=== PATIENT | female | born 1960 | race Hispanic/Latino ===

== ENCOUNTER 2016-12-20 04:53 | Emergency (ER) | payer MEDICAID ==
[2016-12-20 04:57] VITALS: BMI 28.3
--- NOTE | 2016-12-20 05:19 | ED PDOC ---
Arrival/HPI - General Chief Complaint: Chest Pain Time Seen by Provider: 12/20/16 04:56 Historian: Patient - History of Present Illness Narrative History of Present Illness (Text): 12/20/16 05:15 Adrianne Manjarrez is a 56 year old female, with a history of hypercholesterolemia, presents to the emergency department complaining of 1 week duration of intermittent left sided chest pain. States that pain radiates to the left arm. States that pain is worsened with movement of left arm.Notes of decreased ROM left shoulder secondary to pain. Denies fever, chills, headache , dizziness, shortness of breath, nausea, vomiting, diarrhea, abdominal pain, urinary symptoms, or any other complaints at this time. Time/Duration: 1 week Symptom Onset: Gradual Symptom Course: Intermittent Severity Level: Mild Activities at Onset: Light Past Medical History - Provider Review Nursing Documentation Reviewed: Yes - Infectious Disease Hx of Infectious Diseases: None - Psychiatric Hx Substance Use: No - Surgical History Hx Splenectomy: Yes - Anesthesia Hx Anesthesia: Yes Hx Anesthesia Reactions: No Hx Malignant Hyperthermia: No Family/Social History - Physician Review Nursing Documentation Reviewed: Yes Family/Social History: No Known Family HX Smoking Status: Heavy Smoker > 10 Cigarettes Daily Hx Alcohol Use: Yes Frequency of alcohol use: Socially Hx Substance Use: No Allergies/Home Meds Allergies/Adverse Reactions: Allergies aspirin Allergy (Verified 12/20/16 04:57) ANAPHYLAXIS GI BLEED Review of Systems - Physician Review All systems were reviewed & negative as marked: Yes - Review of Systems Constitutional: Normal. absent: Fatigue, Fevers Respiratory: absent: SOB, Cough, Sputum Cardiovascular: Chest Pain. absent: Palpitations Gastrointestinal: Normal. absent: Abdominal Pain, Diarrhea, Nausea, Vomiting Genitourinary Female: Normal. absent: Dysuria, Frequency Musculoskeletal: Other (left shoulder pain ). absent: Back Pain, Neck Pain Neurological: Normal. absent: Headache, Dizziness Physical Exam Vital Signs Reviewed: Yes Vital Signs Temp Pulse Resp BP Pulse Ox 12/20/16 07:20 98 F 74 16 142/89 98 12/20/16 07:02 16 139/91 H 12/20/16 04:53 97.8 F 72 18 132/85 95 Temperature: Afebrile Blood Pressure: Normal Pulse: Regular Respiratory Rate: Normal Appearance: Positive for: Well-Appearing, Non-Toxic, Comfortable Pain Distress: None Mental Status: Positive for: Alert and Oriented X 3 - Systems Exam Head: Present: Atraumatic, Normocephalic Pupils: Present: PERRL Conjunctiva: Present: Normal Mouth: Present: Moist Mucous Membranes Respiratory/Chest: Present: Clear to Auscultation, Good Air Exchange. No: Respiratory Distress, Accessory Muscle Use Cardiovascular: Present: Regular Rate and Rhythm, Normal S1, S2. No: Murmurs Abdomen: Present: Normal Bowel Sounds. No: Tenderness, Distention, Peritoneal Signs Upper Extremity: Present: NORMAL PULSES, Neurovascularly Intact, Other ( decreased ROM secondary to pain ). No: Cyanosis, Edema, Swelling, Erythema, Deformity Lower Extremity: Present: Normal Inspection. No: Edema Neurological: Present: GCS=15, CN II-XII Intact, Speech Normal Skin: Present: Warm, Dry, Normal Color. No: Rashes Psychiatric: Present: Alert, Oriented x 3, Normal Insight, Normal Concentration Medical Decision Making ED Course and Treatment: 12/20/16 05:20 Impression: A 56 year old female who presents to the emergency department complaining of left sided chest pain radiating to left arm for past week. Plan: -- EKG -- Labs, cardiac enzymes -- Chest X-ray -- Shoulder X-ray -- Urinalysis -- Reassess and disposition Progress Notes: ekg rsr rate 82 normal pt pain ms inn anture pain fopr 2 weeks with neg trop will dc follow up with pmd 12/20/16 07:10 12/21/16 22:42 - Lab Interpretations Lab Results: 12/20/16 05:20 12/20/16 05:20 Lab Results 12/20/16 06:00: Urine Color Yellow, Urine Appearance Sl cloudy, Urine pH 6.0, Ur Specific [place] >= 1.030, Urine Protein Trace H, Urine Glucose (UA) Negative , Urine Ketones Negative, Urine Blood Trace-intact H, Urine Nitrate Negative, Urine Bilirubin Negative, Urine Urobilinogen 0.2, Ur Leukocyte Esterase Negative , Urine RBC 0 - 2, Urine WBC 0 - 2, Ur Epithelial Cells 3 - 4 12/20/16 05:20: Sodium 137, Potassium 3.6, Chloride 103, Carbon Dioxide 26, Anion Gap 12, BUN 12, Creatinine 0.6, Est GFR ( Amer) > 60, Est GFR (Non- Af Amer) > 60, Random Glucose 111 H, Calcium 9.3, Total Bilirubin 0.7, AST 30, ALT 34, Alkaline Phosphatase 66, Lactate Dehydrogenase 360, Total Creatine Kinase 98, Troponin I < 0.01, Total Protein 7.2, Albumin 3.7, Globulin 3.5, Albumin/Globulin Ratio 1.0 L, Amylase 51, Lipase 40 12/20/16 05:20: WBC 15.0 H, RBC 4.15, Hgb 13.0, Hct 38.3, MCV 92.3, MCH 31.3, MCHC 33.9, RDW 13.6, Plt Count 526 H, MPV 9.9, Gran % 69.6 H, Lymph % (Auto) 20.3 L, Wallace % (Auto) 8.2 H, Eos % (Auto) 1.7, Baso % (Auto) 0.2, Gran # 10.42 H , Lymph # 3.1, Wallace # 1.2 H, Eos # 0.3, Baso # 0.03 - RAD Interpretation Radiology Orders: 12/20/16 05:10 CHEST TWO VIEWS (PA/LAT) [RAD] Stat SHOULDER LEFT [RAD] Stat - Medication Orders Current Medication Orders: Discontinued Medications Tramadol/Acetaminophen (Ultracet 37.5/325 Mg) 1 tab PO ONCE STA Stop: 12/20/16 07:08 ROWENA Risk Score for UA/NSTEMI - ROWENA Risk Score Age > 64: NO 3 or more CAD Risk Factors: NO Known CAD (Stenosis greater than 50%): NO Aspirin use in past 7 days: NO Severe Angina: NO EKG ST changes greater than 0.5mm: NO Positive Cardiac Marker: NO ROWENA Score: 0 % risk at 14 days of: all cause mortality, new or recurrent MS, or severe recurrent ischemia requiring urgen revascularization: 5% - Scribe Statement The provider has reviewed the documentation as recorded by the Emeterio Maldonado Provider Attestation: All medical record entries made by the Emeterio were at my direction and personally dictated by me. I have reviewed the chart and agree that the record accurately reflects my personal performance of the history, physical exam, medical decision making, and the department course for this patient. I have also personally directed, reviewed, and agree with the discharge instructions and disposition. Disposition/Present on Arrival - Present on Arrival Any Indicators Present on Arrival: No History of DVT/PE: No History of Uncontrolled Diabetes: No Urinary Catheter: No History of Decub. Ulcer: No History Surgical Site Infection Following: None - Disposition Have Diagnosis and Disposition been Completed?: Yes Diagnosis: Shoulder bursitis, Chest pain Disposition: HOME/ ROUTINE Disposition Time: 07:15 Condition: GOOD Discharge Instructions (ExitCare): Chest Pain (ED), Shoulder Bursitis (ED) Prescriptions: Tramadol HCl [Ultram] 50 mg PO QID #12 tab Referrals: Bi Clarke MD [Primary Care Provider] - Follow up with primary
[2016-12-20 05:33] LABS: ADD MANUAL DIFF? NO
[2016-12-20 05:41] LABS: BASO # 0.03 K/mm3 (0.0-2.0); BASO % 0.2 % (0.0-3.0); EOS # 0.3 (0.0-0.7); EOS % 1.7 % (1.5-5.0); GRAN # 10.42 (1.4-6.5); GRAN % 69.6 % (50.0-68.0); HEMATOCRIT 38.3 % (36.0-48.0); LYMPH # 3.1 (1.2-3.4); LYMPH % 20.3 % (22.0-35.0); MEAN CELL VOLUME 92.3 fL (80.0-105.0); MEAN CORPUSCULAR HEMOGLOBIN 31.3 pg (25.0-35.0); MEAN CORPUSCULAR HGB CONC 33.9 g/dl (31.0-37.0); MEAN PLATELET VOLUME 9.9 fl (7.0-11.0); MONO # 1.2 (0.1-0.6); MONO % 8.2 % (1.0-6.0); PLATELET COUNT 526 10^3/uL (120.0-450.0); RED CELL DISTRIBUTION WIDTH 13.6 % (11.5-14.5)
[2016-12-20 05:58] LABS: ALKALINE PHOSPHATASE 66 U/L (38-133); ALT/SGPT 34 U/L (7-56); AMYLASE 51 U/L (35-125); AST/SGOT 30 U/L (15-39); BILIRUBIN,TOTAL 0.7 mg/dL (0.2-1.3); BLOOD UREA NITROGEN 12 mg/dL (7-21); CALCIUM 9.3 mg/dL (8.4-10.5); CARBON DIOXIDE 26 mmol/L (21-33); CHLORIDE 103 mmol/L (95-110); GFR AFRICAN-AMERICAN > 60; GLUCOSE,RANDOM 111 mg/dL (70-110); LIPASE 40 U/L (23-300); POTASSIUM 3.6 mmol/L (3.6-5.0); SODIUM 137 mmol/L (132-148); TOTAL PROTEIN 7.2 g/dL (5.8-8.3)
[2016-12-20 06:03] LABS: TROPONIN I < 0.01 ng/mL
[2016-12-20 06:19] LABS: URINE BILIRUBIN NEGATIVE (NEGATIVE); URINE BLOOD TRACE-INTACT (NEGATIVE); URINE GLUCOSE (UA) NEGATIVE (NEGATIVE); URINE KETONE NEGATIVE (NEGATIVE); URINE LEUKOCYTE ESTERASE NEGATIVE Leu/uL (NEGATIVE); URINE PROTEIN TRACE mg/dL (<30 mg/dL); URINE UROBILINOGEN 0.2 E.U./dL (<1 E.U./dL)
[2016-12-20 06:39] LABS: URINE APPEARANCE SL CLOUDY (CLEAR); URINE COLOR YELLOW (YELLOW)
[2016-12-20 06:43] LABS: URINE RBC 0 - 2 /hpf (0-2); URINE WBC 0 - 2 /hpf (0-6)
[2016-12-20 07:05] VITALS: RESP 16
[2016-12-20] MEDS ORDERED: TraMADol/Apap 37.5/325 mg Tab PO STA (07:07)
[2016-12-20 07:20] VITALS: BP 142/89; PULSE 74; TEMP 98; O2SAT 98
--- NOTE | 2016-12-20 09:01 | RAD ---
HISTORY: cp COMPARISON: No prior. TECHNIQUE: Chest PA and lateral FINDINGS: LUNGS: No active pulmonary disease. PLEURA: Possible small left pleural effusion versus chronic pleural thickening. No right pleural effusion. No pneumothorax. CARDIOVASCULAR: Normal. OSSEOUS STRUCTURES: No significant abnormalities. VISUALIZED UPPER ABDOMEN: Normal. OTHER FINDINGS: None. IMPRESSION: Small left pleural effusion versus chronic pleural thickening. No infiltrate.
--- NOTE | 2016-12-20 09:05 | RAD ---
PROCEDURE: Radiographs of the Left Shoulder HISTORY: pain COMPARISON: No prior. FINDINGS: BONES: Normal. No fracture. JOINTS: Normal. Glenohumeral and acromioclavicular joints preserved. No osteoarthritis. SOFT TISSUES: Small globular calcification adjacent to lesser tuberosity consistent with calcific tendinitis. OTHER FINDINGS: None. IMPRESSION: Calcific tendinitis.
--- NOTE | 2016-12-20 22:42 | CARD ---
APPROVED REPORT EKG Measurement Heart [id number] <Conclusion> Normal sinus rhythm Normal ECG
== END 2016-12-20 07:21 | disposition home or self-care (01) ==
LOC: ED 04:53
DX: R07.9 Chest pain, unspecified (principal); M75.52 Bursitis of left shoulder; E78.00 Pure hypercholesterolemia, unspecified

== ENCOUNTER 2017-05-02 09:07 | Emergency (ER) | payer MEDICAID ==
[2017-05-02 09:07] VITALS: BMI 28.3
[2017-05-02 09:17] VITALS: BP 121/88; TEMP 97.9
--- NOTE | 2017-05-02 10:02 | ED PDOC ---
Arrival/HPI - General Chief Complaint: Upper Extremity Problem/Injury Time Seen by Provider: 05/02/17 09:30 Historian: Patient - History of Present Illness Narrative History of Present Illness (Text): 05/02/17 09:58 56-year-old female presents today with right shoulder pain 12 days. Patient states she woke up one morning with pain to the right shoulder and limited range of motion. Patient states she went to an emergency room in [place] and was diagnosed with a calcium deposit in the right shoulder. Patient states she's been taking Motrin for pain without improvement in her symptoms. She denies numbness weakness or tingling in the extremity but is complaining of decreased range of motion of the shoulder with worsening pain. No chest pain or shortness of breath. No fevers or chills. No other complaints. Time/Duration: Other (12 days) Symptom Onset: Sudden Symptom Course: Worsening Quality: Aching Severity Level: 8 Past Medical History - Provider Review Nursing Documentation Reviewed: Yes - Travel History Have you recently traveled outside [place] w/in the past 3 mons?: No - Infectious Disease Hx of Infectious Diseases: None - Tetanus Immunization Tetanus Immunization: Unknown - Pulmonary Hx Chronic Obstructive Pulmonary Disease (COPD): Yes - Neurological Hx Neurological Disorder: No - HEENT Hx HEENT Disorder: No - Renal Hx Renal Disorder: No - Endocrine/Metabolic Hx Endocrine Disorders: No - Hematological/Oncological Hx Blood Disorders: No - Integumentary Hx Dermatological Disorder: No - Musculoskeletal/Rheumatological Hx Musculoskeletal Disorders: Yes Hx Back Pain: Yes - Gastrointestinal Hx Gastrointestinal Disorders: No - Genitourinary/Gynecological Hx Genitourinary Disorders: No - Psychiatric Hx Anxiety: Yes Hx Substance Use: No - Surgical History Hx Section: Yes Hx Splenectomy: Yes - Anesthesia Hx Anesthesia: Yes Family/Social History - Physician Review Nursing Documentation Reviewed: Yes Family/Social History: Unknown Family HX Smoking Status: Heavy Smoker > 10 Cigarettes Daily Hx Alcohol Use: Yes Hx Substance Use: No Allergies/Home Meds Allergies/Adverse Reactions: Allergies aspirin Allergy (Verified 05/02/17 09:11) ANAPHYLAXIS GI BLEED Home Medications: Home Meds Medication Instructions Recorded Confirmed Alprazolam [Xanax] 2 mg PO PRN PRN 05/02/17 05/02/17 Review of Systems - Review of Systems Constitutional: absent: Fatigue, Fevers Respiratory: absent: SOB, Cough Cardiovascular: absent: Chest Pain, Palpitations Gastrointestinal: absent: Abdominal Pain, Nausea, Vomiting Genitourinary Female: absent: Dysuria, Frequency, Hematuria Musculoskeletal: Arthralgias. absent: Back Pain, Neck Pain Skin: absent: Rash, Pruritis Neurological: absent: Headache, Dizziness Psychiatric: absent: Anxiety, Depression, Suicidal Ideation Physical Exam Vital Signs Reviewed: Yes Vital Signs Temp Pulse Resp BP Pulse Ox 05/02/17 09:12 97.9 F 102 H 16 121/88 96 Temperature: Afebrile Blood Pressure: Normal Pulse: Tachycardic Respiratory Rate: Normal Appearance: Positive for: Well-Appearing, Non-Toxic, Comfortable Pain Distress: None Mental Status: Positive for: Alert and Oriented X 3 - Systems Exam Head: Present: Atraumatic Mouth: Present: Moist Mucous Membranes Neck: Present: Normal Range of Motion Respiratory/Chest: Present: Clear to Auscultation, Good Air Exchange. No: Respiratory Distress, Accessory Muscle Use Cardiovascular: Present: Regular Rate and Rhythm, Normal S1, S2. No: Murmurs Back: Present: Normal Inspection Upper Extremity: Present: NORMAL PULSES, Tenderness (right shoulder; + ttp over anteriolateral aspect of the shoulder; limited abduction. no erythema; no edema , no ecchymosis; sensation and distal pulses intact. cap refill <2. ), Neurovascularly Intact, Capillary Refill < 2s. No: Normal ROM, Swelling, Erythema, Deformity Neurological: Present: GCS=15, Speech Normal Skin: Present: Warm, Dry, Normal Color. No: Rashes Psychiatric: Present: Alert, Oriented x 3 Medical Decision Making ED Course and Treatment: 05/02/17 10:02 Patient nontoxic well-appearing in no distress with stable vital signs X-rays of the right shoulder; NO FRACTURE, CALCIFICATION DEVELOP motrin po pt has sling. advised f/u with orthopedist. advised using sling at times. but stressed importance of ROM of shoulder to avoid frozen shoulder. I discussed all results with patient advised to followup with the orthopedist for the next 2 days. Return if symptoms worsen persist or new symptoms develop Impression: shoulder pain Motrin every 6 hours as needed for pain Flexeril: 1 tablet every 6 hours as needed for moderate to severe pain. may cause drowsiness. Rest, ice, compression, elevation Followup with the orthopedist within the next 2 days Followup with primary care physician within the next 2 days Return if any other concerning symptoms develop 05/02/17 10:41 - RAD Interpretation Radiology Orders: 05/02/17 09:42 SHOULDER RIGHT [RAD] Stat - Medication Orders Current Medication Orders: Discontinued Medications Cyclobenzaprine HCl (Flexeril) 10 mg PO STAT STA Stop: 05/02/17 09:39 Last Admin: 05/02/17 09:50 Dose: 10 mg Famotidine (Pepcid) 20 mg PO STAT STA Stop: 05/02/17 09:43 Last Admin: 05/02/17 09:50 Dose: 20 mg Ibuprofen (Motrin Tab) 600 mg PO STAT STA Stop: 05/02/17 09:43 Last Admin: 05/02/17 09:50 Dose: 600 mg MAR Pain/Vitals Document 05/02/17 09:50 SE (Rec: 05/02/17 09:51 SE [id number]) Pain Reassessment Is This A Pain ReAssessment? No Sleep Is patient sleeping during reassessment? No Presence of Pain Presence of Pain Yes Pain Scale Used Pain Scale Used Numeric Location Left, Right or Bilateral Right Pain Location Body Site Shoulder Disposition/Present on Arrival - Present on Arrival Any Indicators Present on Arrival: No History of DVT/PE: No History of Uncontrolled Diabetes: No Urinary Catheter: No History of Decub. Ulcer: No History Surgical Site Infection Following: None - Disposition Have Diagnosis and Disposition been Completed?: Yes Diagnosis: Shoulder pain Disposition: HOME/ ROUTINE Disposition Time: 10:09 Patient Plan: Discharge Condition: GOOD Discharge Instructions (ExitCare): Shoulder Pain (ED) Additional Instructions: Motrin every 6 hours as needed for pain Flexeril: 1 tablet every 6 hours as needed for moderate to severe pain. may cause drowsiness. Rest, ice, compression, elevation Followup with the orthopedist within the next 2 days Followup with primary care physician within the next 2 days Return if any other concerning symptoms develop Prescriptions: Cyclobenzaprine [Cyclobenzaprine HCl] 10 mg PO Q8 #10 tab Ibuprofen [Motrin] 600 mg PO Q6H PRN #20 tab PRN Reason: pain/fever reduction Referrals: Bi Clarke MD [Primary Care Provider] - Follow up with primary Bi Ceballos DO [Staff Provider] - Follow up with primary Forms: [facility] (Frisian), WORK NOTE
[2017-05-02 10:06] VITALS: PULSE 99; RESP 19; O2SAT 100
--- NOTE | 2017-05-02 12:22 | RAD ---
PROCEDURE: Radiographs of the Right Shoulder HISTORY: shoulder pain COMPARISON: No prior. FINDINGS: BONES: No fracture. No dislocation. Globular and curvilinear calcification adjacent to greater tuberosity consistent with calcific tendinitis. JOINTS: Normal. Glenohumeral and acromioclavicular joints preserved. No osteoarthritis. SOFT TISSUES: Normal. OTHER FINDINGS: None. IMPRESSION: Calcific tendinitis. No fracture/ dislocation.
== END 2017-05-02 10:47 | disposition home or self-care (01) ==
LOC: ED 09:07
DX: M25.511 Pain in right shoulder (principal)